=== PATIENT | female | born 2000 | race African-American/Black ===

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

== ENCOUNTER 2019-01-28 11:42 | Emergency (ER) | payer OTHER ==
[~2019-01-28] VITALS: Ht 165.1 cm; Wt 73.3 kg
[2019-01-28 11:58] VITALS: BP 127/72
--- NOTE | 2019-01-28 12:04 | PHYS DOC ---
Past History Past Medical History: No Pertinent History, Other Past Surgical History: Tonsillectomy Smoking: Non-smoker Alcohol Use: None Drug Use: None Adult General Chief Complaint Chief Complaint: URINARY RETENTION HPI HPI Patient is a 18-year-old female who presents with complaint of urinary discomfort that started yesterday. She complains of urinary frequency with a lot of burning with urination. She states that she is only passing small amount of urine at a time. She states that she has been taking Azo but that has not been helping. She denies any fever. She denies any nausea or vomiting.[] Review of Systems Review of Systems Constitutional: Denies fever or chills [] Respiratory: Denies cough or shortness of breath [] Cardiovascular: No additional information not addressed in HPI [] GI: Complains of suprapubic pain without vomiting or diarrhea [] : Complains of urinary frequency with dysuria[] Musculoskeletal: Denies back pain or joint pain [] Allergies Allergies Allergies Coded Allergies Type Severity Reaction Last Updated Verified No Known Drug Allergies 09/02/16 No Physical Exam Physical Exam Constitutional: Well developed, well nourished, no acute distress, non-toxic appearance. [] Cardiovascular:Heart rate regular rhythm, no murmur [] Lungs & Thorax: Bilateral breath sounds clear to auscultation [] Abdomen: Bowel sounds normal, soft, with suprapubic tenderness. [] Skin: Warm, dry, no erythema, no rash. [] EKG EKG [] Radiology/Procedures Radiology/Procedures [] Course & Med Decision Making Course & Med Decision Making Pertinent Labs and Imaging studies reviewed. (See chart for details) [] Dragon Disclaimer Dragon Disclaimer This electronic medical record was generated, in whole or in part, using a voice recognition dictation system. Departure Departure: Impression: Primary Impression: UTI (urinary tract infection) Disposition: 01 HOME, SELF-CARE Condition: STABLE Referrals: [facility]HAEL BLAKE DO, [facility] (PCP) Patient Instructions: Urinary Tract Infection Scripts Phenazopyridine Hcl (PYRIDIUM) 100 Mg Tablet 100 MG PO TID PRN for URINARY PAIN, #12 TAB Prov: AAMIR ROJAS Jr., DO 01/28/19 Sulfamethoxazole/Trimethoprim (BACTRIM DS TABLET) 1 Each Tablet 1 TAB PO BID for infection, #20 TAB Prov: AAMIR ROJAS Jr., DO 01/28/19 Problem Qualifiers Primary Impression: UTI (urinary tract infection) Urinary tract infection type: site unspecified Hematuria presence: without hematuria Qualified Codes: N39.0 - Urinary tract infection, site not specified AAMIR ROJAS Jr. DO Jan 28, 2019 12:04
[2019-01-28 12:29] LABS: U PREG PATIENT NEGATIVE (NEG)
[2019-01-28 12:30] LABS: CLARITY,URINE BLOODY; COLOR,URINE RED
[2019-01-28 12:31] LABS: BILIRUBIN,URINE NEG (NEG)
[2019-01-28] MEDS ORDERED: PHEN100T82 PO (12:36)
[2019-01-28] MEDS ORDERED: SULF1TAB24 PO (12:36)
[2019-01-28] MEDS ORDERED: FLUC150T PO (12:48)
== END 2019-01-28 12:43 | disposition home or self-care (01) ==
LOC: ER 11:42
DX: N39.0 Urinary tract infection, site not specified (principal)
CPT/HCPCS: 81003; 81025; 99283

== ENCOUNTER 2019-11-05 16:31 | Emergency (ER) | payer OTHER ==
[~2019-11-05] VITALS: Ht 162.6 cm; Wt 74.0 kg
[~2019-11-05 16:31] MED LIST changes: +FLUC150T PO; +PHEN100T82 PO; +SULF1TAB24 PO
[2019-11-05 16:35] VITALS: BP 140/76
--- NOTE | 2019-11-05 16:50 | PHYS DOC ---
Past History Past Medical History: No Pertinent History Past Surgical History: Tonsillectomy Smoking: Non-smoker Alcohol Use: None Drug Use: None General Adult EDM: Chief Complaint: CHEST PAIN HPI: HPI: Patient is a healthy 19-year-old female who presents with a sharp chest pain. States been going on today. She states she has been smoking marijuana and went to a "puff alliance party". She states the symptoms started after that. She has not had any fever chills or sweats. She is not really been coughing. 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 however she does not believe anyone there has been sick with COVID-19 [] Review of Systems: Review of Systems: Constitutional: Denies fever or chills Eyes: Denies change in visual acuity HENT: Denies nasal congestion or sore throat Respiratory: Denies cough or shortness of breath Cardiovascular: Per HPI GI: Denies abdominal pain, nausea, vomiting, bloody stools or diarrhea : Denies dysuria Musculoskeletal: Denies back pain or joint pain Integument: Denies rash Neurologic: Denies headache, focal weakness or sensory changes Endocrine: Denies polyuria or polydipsia Lymphatic: Denies swollen glands Psychiatric: Reports anxiety Heart Score: Risk Factors: Risk Factors: DM, Current or recent (<one month) smoker, HTN, HLP, family history of CAD, obesity. Risk Scores: Score 0 - 3: 2.5% MACE over next 6 weeks - Discharge Home Score 4 - 6: 20.3% MACE over next 6 weeks - Admit for Clinical Observation Score 7 - 10: 72.7% MACE over next 6 weeks - Early Invasive Strategies Allergies: Allergies: Allergies Coded Allergies Type Severity Reaction Last Updated Verified No Known Drug Allergies 09/02/16 No Physical Exam: PE: Constitutional: Well developed, well nourished, no acute distress, non-toxic appearance. [] HENT: Normocephalic, atraumatic, bilateral external ears normal, oropharynx moist, no oral exudates, nose normal. [] Eyes: PERRLA, EOMI, conjunctiva normal, no discharge. [] Neck: Normal range of motion, no tenderness, supple, no stridor. [] Cardiovascular:Heart rate regular rhythm, no murmur [] Lungs & Thorax: Bilateral breath sounds clear to auscultation [] Abdomen: Bowel sounds normal, soft, no tenderness, no masses, no pulsatile masses. [] Skin: Warm, dry, no erythema, no rash. [] Back: No tenderness, no CVA tenderness. [] Extremities: No tenderness, no cyanosis, no clubbing, ROM intact, no edema. [] Neurologic: Alert and oriented X 3, normal motor function, normal sensory function, no focal deficits noted. [] Psychologic: Very anxious. [] Current Patient Data: Vital Signs: Vital Signs Date Time Temp Pulse Resp B/P (MAP) Pulse Ox O2 Delivery O2 Flow Rate FiO2 11/05/19 16:35 98.0 88 16 140/76 (97) 100 Room Air EKG: EKG: [] Radiology/Procedures: Radiology/Procedures: [] Course & Med Decision Making: Course & Med Decision Making Pertinent Labs and Imaging studies reviewed. (See chart for details) [] Dragon Disclaimer: Dragon Disclaimer: This electronic medical record was generated, in whole or in part, using a voice recognition dictation system. Departure Departure: Impression: Primary Impression: Non-cardiac chest pain Disposition: HOME, SELF-CARE Condition: STABLE Referrals: MICHAEL BLAKE DO, [facility] (PCP) Patient Instructions: Chest Wall Pain, Pleurisy Additional Instructions: Take Tylenol or Motrin as needed for your discomfort. Return to the emergency department with any new or concerning symptoms CLARISSA REDDY DO Nov 05, 2019 16:50
== END 2019-11-05 16:54 | disposition home or self-care (01) ==
LOC: ER 16:31
DX: R07.89 Other chest pain (principal); F41.9 Anxiety disorder, unspecified; Z90.89 Acquired absence of other organs
CPT/HCPCS: 99282

== ENCOUNTER 2020-02-18 14:15 | Emergency (ER) | payer OTHER ==
[~2020-02-18] VITALS: Ht 162.6 cm; Wt 68.2 kg
--- NOTE | 2020-02-18 15:03 | PHYS DOC ---
Past History Past Medical History: No Pertinent History Past Surgical History: Tonsillectomy Smoking: Non-smoker Alcohol Use: None Drug Use: None General Adult EDM: Chief Complaint: VAGINAL PROBLEM HPI: HPI: 19-year-old female presents with 2-day history of vaginal itching. The patient was diagnosed with bacterial vaginosis a couple weeks ago. She took 7 days of metronidazole. She is concerned that the bacterial vaginosis may have come back where she might have a yeast infection. Patient also like to be tested for STDs. She is sexually active. She denies fever or chills. She has no other complaints at this time. Review of Systems: Review of Systems: Constitutional: Denies fever or chills Eyes: Denies change in visual acuity HENT: Denies nasal congestion or sore throat Respiratory: Denies cough or shortness of breath Cardiovascular: Denies chest pain or edema GI: Denies abdominal pain, nausea, vomiting, bloody stools or diarrhea : Vaginal itching Musculoskeletal: Denies back pain or joint pain Integument: Denies rash Neurologic: Denies headache, focal weakness or sensory changes Endocrine: Denies polyuria or polydipsia Lymphatic: Denies swollen glands Psychiatric: Denies depression or anxiety Heart Score: Risk Factors: Risk Factors: DM, Current or recent (<one month) smoker, HTN, HLP, family history of CAD, obesity. Risk Scores: Score 0 - 3: 2.5% MACE over next 6 weeks - Discharge Home Score 4 - 6: 20.3% MACE over next 6 weeks - Admit for Clinical Observation Score 7 - 10: 72.7% MACE over next 6 weeks - Early Invasive Strategies Allergies: Allergies: Allergies Coded Allergies Type Severity Reaction Last Updated Verified No Known Drug Allergies 09/02/16 No Physical Exam: PE: Constitutional: Well developed, well nourished, no acute distress, non-toxic appearance. [] HENT: Normocephalic, atraumatic, bilateral external ears normal, oropharynx moist, no oral exudates, nose normal. [] Eyes: PERRLA, EOMI, conjunctiva normal, no discharge. [] Neck: Normal range of motion, no tenderness, supple, no stridor. [] Cardiovascular: Heart rate regular rhythm, no murmur [] Lungs & Thorax: Bilateral breath sounds clear to auscultation [] Abdomen: Bowel sounds normal, soft, no tenderness, no masses, no pulsatile masses. [] Skin: Warm, dry, no erythema, no rash. [] Back: No tenderness, no CVA tenderness. [] Extremities: No tenderness, no cyanosis, no clubbing, ROM intact, no edema. [] Neurologic: Alert and oriented X 3, normal motor function, normal sensory function, no focal deficits noted. [] Psychologic: Affect normal, judgement normal, mood normal. [] EKG: EKG: [] Radiology/Procedures: Radiology/Procedures: [] Course & Med Decision Making: Course & Med Decision Making Pertinent Labs and Imaging studies reviewed. (See chart for details) The patient's labs are unremarkable. Her wet prep is positive for bacterial vaginosis. I will treat her again with Flagyl 500 mg twice daily but for 10 days. She has elected for treatment of gonorrhea and chlamydia prophylactically. I have given her 2 and 50 mg Rocephin IM and a gram of azithromycin p.o. She is stable for discharge at this time. [] Dragon Disclaimer: Dragon Disclaimer: This electronic medical record was generated, in whole or in part, using a voice recognition dictation system. Departure Departure: Impression: Primary Impression: Bacterial vaginosis Disposition: HOME/RESIDENCE PRIOR TO ADM Condition: STABLE Referrals: MICHAEL BLAKE DO, [facility] (PCP) Patient Instructions: Bacterial Vaginosis, [id number] Scripts Metronidazole (METRONIDAZOLE) 500 Mg Tablet 1 TAB PO BID for bacterial vaginosis for 10 Days, #20 TAB 0 Refills Prov: LM MACHADO DO 02/18/20 Justification of Admission: Justification of Admission: Justification of Admission Dx: N/A LM MACHADO DO Feb 18, 2020 15:03
[2020-02-18 15:20] LABS: BASO # 0.1 x10^3/uL (0.0-0.2); BASO % 1 % (0-3); EOS # 0.1 x10^3/uL (0.0-0.7); EOS % 1 % (0-3); HEMATOCRIT 40.6 % (36.0-47.0); HEMOGLOBIN 13.3 g/dL (12.0-15.5); LYMPH # 1.6 x10^3/uL (1.0-4.8); LYMPH % 37 % (24-48); MEAN CORPUSCULAR HEMOGLOBIN 28 pg (25-35); MEAN CORPUSCULAR HGB CONC 33 g/dL (31-37); MEAN CORPUSCULAR VOLUME 84 fL (79-100); MONO # 0.4 x10^3/uL (0.0-1.1); MONO % 8 % (0-9); NEUT # 2.3 x10^3uL (1.8-7.7); NEUT % 52 % (31-73); PLATELET COUNT 314 x10^3/uL (140-400); RED BLOOD COUNT 4.84 x10^6/uL (3.50-5.40); RED CELL DISTRIBUTION WIDTH 13.4 % (11.5-14.5); WHITE BLOOD COUNT 4.4 x10^3/uL (4.0-11.0)
[2020-02-18 15:23] LABS: BARBITURATES NEG (NEG); BENZODIAZEPINES NEG (NEG); CANNABINOIDS POS (NEG); COCAINE NEG (NEG); METHADONE NEG (NEG); OPIATES NEG (NEG); PHENCYCLIDINE NEG (NEG)
[2020-02-18 15:25] LABS: AMPHETAMINE/METHAMPHETAMINE NEG (NEG)
[2020-02-18 15:30] LABS: CALCIUM 9.2 mg/dL (8.5-10.1); CREATININE 0.9 mg/dL (0.6-1.0); GFR 96.6; POTASSIUM 3.8 mmol/L (3.5-5.1)
[2020-02-18 15:31] LABS: BILIRUBIN,URINE NEG (NEG); CLARITY,URINE HAZY; COLOR,URINE YELLOW; GLUCOSE,URINE NEG (NEG)
[2020-02-18 15:32] LABS: BACTERIA,URINE 0 /HPF (0-FEW); NITRITE,URINE NEG (NEG); RBC,URINE OCC /HPF (0-2); SQUAMOUS EPITHELIAL CELL,UR MANY /LPF; WBC,URINE OCC /HPF (0-4)
[2020-02-18 15:37] LABS: ALBUMIN/GLOBULIN RATIO 1.1 (1.0-1.7); TOTAL BILIRUBIN 0.8 mg/dL (0.2-1.0); TOTAL PROTEIN 7.5 g/dL (6.4-8.2)
[2020-02-18] MEDS ORDERED: cefTRIAXone IM 250 MG VIAL IM ONE (16:00)
[2020-02-18] MEDS ORDERED: AZITHROMYCIN 250 MG TABLET. PO ONE (16:00)
[2020-02-18] MEDS ORDERED: METR-34 PO (16:28)
[2020-02-18 16:38] VITALS: BP 122/67
[2020-02-21 23:06] LABS: CHLAMYDIA PROBE Negative (Negative)
== END 2020-02-18 16:44 | disposition home or self-care (01) ==
LOC: ER 14:15
DX: N76.0 Acute vaginitis (principal); B96.89 Other specified bacterial agents as the cause of diseases classified elsewhere
CPT/HCPCS: 36415; 80053; 80307; 81001; 81025; 85025; 87491; 87591; 96372; 99283; J0456; J0696; Q0111

== ENCOUNTER 2021-05-07 16:45 | Emergency (ER) | payer OTHER ==
[~2021-05-07] VITALS: Ht 162.6 cm; Wt 72.7 kg
[~2021-05-07 16:45] MED LIST changes: +METR-34 PO
[2021-05-07 17:53] VITALS: BP 129/73
--- NOTE | 2021-05-07 18:55 | PHYS DOC ---
Past History Past Medical History: No Pertinent History Past Surgical History: Tonsillectomy Smoking: Non-smoker Additional Smoking Information: vape Alcohol Use: None Drug Use: None General Adult EDM: Chief Complaint: SORE THROAT HPI: HPI: 20-year-old female presents with sore throat for the last 2 days. It is intermittently sore and mostly only with swallowing. She is able to eat and drink normally without difficulty. She has had no shortness of breath or significant cough. She had COVID-19 a couple months ago and has recovered. She has since been fully vaccinated. Her child had RSV and Covid 2 weeks ago. The patient just wants to make sure she does not have Covid again or strep throat. She denies fever or chills at home. Review of Systems: Review of Systems: Constitutional: Denies fever or chills Eyes: Denies change in visual acuity HENT: sore throat Respiratory: Denies cough or shortness of breath Cardiovascular: Denies chest pain or edema GI: Denies abdominal pain, nausea, vomiting, bloody stools or diarrhea : Denies dysuria Musculoskeletal: Denies back pain or joint pain Integument: Denies rash Neurologic: Denies headache, focal weakness or sensory changes Endocrine: Denies polyuria or polydipsia Lymphatic: Denies swollen glands Psychiatric: Denies depression or anxiety Allergies: Allergies: Allergies Coded Allergies Type Severity Reaction Last Updated Verified No Known Drug Allergies 09/02/16 No Physical Exam: PE: Constitutional: Well developed, well nourished, no acute distress, non-toxic appearance. [] HENT: Normocephalic, atraumatic, bilateral external ears normal, oropharynx moist without tonsillar exudates, mild postnasal drip, nose normal. [] Eyes: PERRLA, EOMI, conjunctiva normal, no discharge. [] Neck: Normal range of motion, no tenderness, supple, no stridor. [] Cardiovascular: Heart rate regular rhythm, no murmur [] Lungs & Thorax: Bilateral breath sounds clear to auscultation [] Abdomen: Bowel sounds normal, soft, no tenderness, no masses, no pulsatile masses. [] Skin: Warm, dry, no erythema, no rash. [] Back: No tenderness, no CVA tenderness. [] Extremities: No tenderness, no cyanosis, no clubbing, ROM intact, no edema. [] Neurologic: Alert and oriented X 3, normal motor function, normal sensory function, no focal deficits noted. [] Psychologic: Affect normal, judgement normal, mood normal. [] Current Patient Data: Labs: Laboratory Tests Test 05/07/21 18:07 Group A Streptococcus Rapid Negative (NEGATIVE) Vital Signs: Vital Signs Date Time Temp Pulse Resp B/P (MAP) Pulse Ox O2 Delivery O2 Flow Rate FiO2 05/07/21 17:53 98.5 78 16 129/73 (91) 100 Room Air EKG: EKG: [] Radiology/Procedures: Radiology/Procedures: [] Heart Score: C/O Chest Pain: N/A Risk Factors: Risk Factors: DM, Current or recent (<one month) smoker, HTN, HLP, family history of CAD, obesity. Risk Scores: Score 0 - 3: 2.5% MACE over next 6 weeks - Discharge Home Score 4 - 6: 20.3% MACE over next 6 weeks - Admit for Clinical Observation Score 7 - 10: 72.7% MACE over next 6 weeks - Early Invasive Strategies Course & Med Decision Making: Course & Med Decision Making Pertinent Labs and Imaging studies reviewed. (See chart for details) The patient's rapid strep is negative. I do not have high suspicion for strep. Her COVID-19 is pending but unlikely also. Believe this is most likely viral pharyngitis. Advised the patient about supportive care and [id number] treatments. She will just have to ride this out. She is stable for discharge at this time. [] Dragon Disclaimer: Dragclay Disclaimer: This electronic medical record was generated, in whole or in part, using a voice recognition dictation system. Departure Departure: Impression: Primary Impression: Acute viral pharyngitis Referrals: MICHAEL BLAKE DO, M[facility] (PCP) Patient Instructions: Viral Pharyngitis LM MACHADO DO May 07, 2021 18:55
== END 2021-05-07 19:02 | disposition home or self-care (01) ==
LOC: ER 16:45
DX: U07.1 COVID-19 (principal); J02.8 Acute pharyngitis due to other specified organisms; F17.200 Nicotine dependence, unspecified, uncomplicated
CPT/HCPCS: 87070; 87880; 99283; C9803; U0003

== ENCOUNTER 2021-06-13 16:47 | Emergency (ER) | payer OTHER ==
[~2021-06-13] VITALS: Ht 162.6 cm; Wt 68.1 kg
[2021-06-13] MEDS ORDERED: ONDANSETRON PF 4 MG/2 ML VIAL. IVP ONE (17:15)
[2021-06-13] MEDS ORDERED: IV NORMAL SALINE 1,000ML 1,000 ML IV ONE (17:15)
[2021-06-13] MEDS ORDERED: KETOROLAC 30 MG/ML VIAL. IVP ONE (17:30)
[2021-06-13] MEDS ORDERED: LIDO:MAALOX 1:1 20 ML SINGLE DOSE. PO ONE (17:45)
[2021-06-13 17:48] LABS: BASO % 0 % (0-3); EOS % 0 % (0-3); HEMATOCRIT 40.7 % (36.0-47.0); HEMOGLOBIN 13.2 g/dL (12.0-15.5); LYMPH # 0.2 x10^3/uL (1.0-4.8); LYMPH % 1 % (24-48); MEAN CORPUSCULAR HEMOGLOBIN 25 pg (25-35); MEAN CORPUSCULAR HGB CONC 32 g/dL (31-37); MEAN CORPUSCULAR VOLUME 77 fL (79-100); MONO # 0.2 x10^3/uL (0.0-1.1); MONO % 2 % (0-9); NEUT # 10.2 x10^3uL (1.8-7.7); NEUT % 96 % (31-73); PLATELET COUNT 404 x10^3/uL (140-400); RED BLOOD COUNT 5.29 x10^6/uL (3.50-5.40); RED CELL DISTRIBUTION WIDTH 15.2 % (11.5-14.5); WHITE BLOOD COUNT 10.7 x10^3/uL (4.0-11.0)
[2021-06-13 17:49] LABS: BILIRUBIN,URINE SMALL (NEG); CLARITY,URINE CLEAR; COLOR,URINE YELLOW; GLUCOSE,URINE NEG (NEG); NITRITE,URINE NEG (NEG); UROBILINOGEN,URINE 0.2 mg/dL (0.2 mg/dL)
[2021-06-13 17:50] LABS: BACTERIA,URINE 0 /HPF (0-FEW); RBC,URINE 0 /HPF (0-2); SQUAMOUS EPITHELIAL CELL,UR FEW /LPF; WBC,URINE OCC /HPF (0-4)
--- NOTE | 2021-06-13 17:56 | PHYS DOC ---
Past History Past Medical History: No Pertinent History Past Surgical History: , Tonsillectomy, Other Additional Past Surgical Histo: adnoidectomy Smoking: Non-smoker Alcohol Use: None Drug Use: None General Adult EDM: Chief Complaint: ABDOMINAL PAIN HPI: HPI: Patient is a 20 year old female who presents with abdominal pain, nausea, vomiting. Patient reports her pain began this morning. She has had 4 episodes of emesis and 5 episodes of diarrhea today. She denies blood in vomit or stool. She reports associated fever this morning. She has not attempted to take any medication. She is able to keep water only down. She has not attempted eating today. Patient had an upper respiratory infection recently. She has been taking Tessalon Perles to control her cough. Patient reports she had a in January and is unsure if she is currently . Review of Systems: Review of Systems: Constitutional: See HPI Eyes: Denies change in visual acuity HENT: Denies nasal congestion or sore throat Respiratory: Denies cough or shortness of breath Cardiovascular: Denies chest pain or edema GI: See HPI : See HPI Musculoskeletal: Denies back pain or joint pain Integument: Denies rash or other skin lesions Neurologic: Denies headache, focal weakness or sensory changes Current Medications: Current Meds: Current Medications Medications (Trade) Dose Ordered Sig/[facility] Start Time Stop Time Status Last Admin Dose Admin Ketorolac Tromethamine (Toradol 30mg Vial) 15 mg 1X ONCE 06/13/21 17:30 06/13/21 17:31 DC 06/13/21 17:35 15 MG Multi-Ingredient Mouthwash/Gargle (Gi Cocktail) 20 ml 1X ONCE 06/13/21 17:45 06/13/21 17:46 DC 06/13/21 17:40 20 ML Ondansetron HCl (Zofran) 4 mg 1X ONCE 06/13/21 17:15 06/13/21 17:19 DC 06/13/21 17:37 4 MG Sodium Chloride 1,000 ml @ 1,000 mls/hr 1X ONCE 06/13/21 17:15 06/13/21 18:14 06/13/21 17:34 1,000 MLS/HR Allergies: Allergies: Allergies Coded Allergies Type Severity Reaction Last Updated Verified No Known Drug Allergies 06/13/21 No Physical Exam: PE: Constitutional: Well developed, well nourished, no acute distress, non-toxic appearance. Cardiovascular: Heart rate regular rhythm, no murmur. Lungs & Thorax: Bilateral breath sounds clear to auscultation. Abdomen: Bowel sounds normal, soft, epigastric and right upper quadrant tenderness appreciated, positive Wakefield sign, no masses, no pulsatile masses. Skin: Warm, dry, no erythema, no rash. Back: No tenderness, no CVA tenderness. Extremities: No tenderness, no cyanosis, no clubbing, ROM intact, no edema. Neurologic: Alert and oriented x4, no focal deficits noted. Current Patient Data: Labs: Laboratory Tests Test 06/13/21 17:15 06/13/21 17:23 06/13/21 17:25 06/13/21 17:30 Urine Collection Type Unknown Urine Color Yellow Urine Clarity Clear Urine pH 5.5 Urine Specific [place] 1.025 Urine Protein Neg (NEG-TRACE) Urine Glucose (UA) Neg mg/dL (NEG) Urine Ketones (Stick) 15 mg/dL (NEG) Urine Blood Neg (NEG) Urine Nitrite Neg (NEG) Urine Bilirubin Small (NEG) Urine Urobilinogen Dipstick 0.2 mg/dL (0.2 mg/dL) Urine Leukocyte Esterase Neg (NEG) Urine RBC 0 /HPF (0-2) Urine WBC Occ /HPF (0-4) Urine Squamous Epithelial Cells Few /LPF Urine Bacteria 0 /HPF (0-FEW) Bedside Urine HCG, Qualitative hcg negative (Negative) White Blood Count 10.7 x10^3/uL (4.0-11.0) Red Blood Count 5.29 x10^6/uL (3.50-5.40) Hemoglobin 13.2 g/dL (12.0-15.5) Hematocrit 40.7 % (36.0-47.0) Mean Corpuscular Volume 77 fL (79-100) Mean Corpuscular Hemoglobin 25 pg (25-35) Mean Corpuscular Hemoglobin Concent 32 g/dL (31-37) Red Cell Distribution Width 15.2 % (11.5-14.5) Platelet Count 404 x10^3/uL (140-400) Neutrophils (%) (Auto) 96 % (31-73) Lymphocytes (%) (Auto) 1 % (24-48) Monocytes (%) (Auto) 2 % (0-9) Eosinophils (%) (Auto) 0 % (0-3) Basophils (%) (Auto) 0 % (0-3) Neutrophils # (Auto) 10.2 x10^3uL (1.8-7.7) Lymphocytes # (Auto) 0.2 x10^3/uL (1.0-4.8) Monocytes # (Auto) 0.2 x10^3/uL (0.0-1.1) Eosinophils # (Auto) 0.0 x10^3/uL (0.0-0.7) Basophils # (Auto) 0.0 x10^3/uL (0.0-0.2) Sodium Level 139 mmol/L (136-145) Potassium Level 3.7 mmol/L (3.5-5.1) Chloride Level 104 mmol/L (98-107) Carbon Dioxide Level 22 mmol/L (21-32) Anion Gap 13 (6-14) Blood Urea Nitrogen 9 mg/dL (7-20) Creatinine 0.9 mg/dL (0.6-1.0) Estimated GFR (Cockcroft-Gault) 95.6 BUN/Creatinine Ratio 10 (6-20) Glucose Level 91 mg/dL (70-99) Calcium Level 8.9 mg/dL (8.5-10.1) Magnesium Level 2.1 mg/dL (1.8-2.4) Total Bilirubin 2.1 mg/dL (0.2-1.0) Aspartate Amino Transf (AST/SGOT) 15 U/L (15-37) Alanine Aminotransferase (ALT/SGPT) 20 U/L (14-59) Alkaline Phosphatase 67 U/L (46-116) Total Protein 7.9 g/dL (6.4-8.2) Albumin 4.1 g/dL (3.4-5.0) Albumin/Globulin Ratio 1.1 (1.0-1.7) Lipase 50 U/L (73-393) Influenza Type A (Rapid) Negative (NEGATIVE) Influenza Type B (Rapid) Negative (NEGATIVE) Vital Signs: VS Date Time Temp Pulse Resp B/P (MAP) Pulse Ox O2 Delivery O2 Flow Rate FiO2 06/13/21 17:43 83 18 137/64 (88) 100 Room Air 06/13/21 16:56 98.4 84 18 143/68 93 100 Room Air Radiology/Procedures: Radiology/Procedures: PROCEDURE: CT ABD PELV W/ IV CONTRST ONLY Exam Date: 06/13/2021 6:[address] ABDOMEN+PELVIS W Indication: Reason: elevated bili, abd pain - 75mls omni 300 / Spl. Instructions: / History: . TECHNIQUE: CT examination of the abdomen and pelvis was performed following the administration of nonionic intravenous contrast. One or more of the following dose reduction techniques were utilized: *Automated exposure control (AEC) *Adjustment of mA and/or kV according to patient size *Use of iterative reconstruction technique *CT scan done according to ALARA, or ALARA/IMAGE GENTLY FINDINGS: The visualized lung bases are clear. The liver, gallbladder, spleen, pancreas, adrenal glands and kidneys are normal. Urinary bladder is normal in appearance. There is no bowel obstruction or inflammation. No evidence for acute appendicitis. No significant atherosclerotic calcifications are seen. No lymphadenopathy or ascites is seen. Osseous structures are intact. IMPRESSION: No evidence of acute intra-abdominal pathology. Electronically signed by: Jose Morgan MD (06/13/2021 7:07 PM) [facility] Heart Score: C/O Chest Pain: No Course & Med Decision Making: Course & Med Decision Making Pertinent Labs and Imaging studies reviewed. (See chart for details) Patient presents with upper abdominal pain, nausea, vomiting, diarrhea and acidic taste in mouth. Work-up today will include blood work, urinalysis, Covid and flu swabs. IV fluids, Zofran, ketorolac administered. GI cocktail provided. On reevaluation, patient states GI cocktail helped with esophageal and epigastric pain. Her pain is improved, but she continues to have upper and right-sided abdominal pain. Bilirubin elevated at 2.1. CT imaging ordered to evaluate liver. CT does not reveal any acute abdominal pathology. On reevaluation, patient is asleep in exam bed. Discussed clear liquid diet and advance as tolerated with the patient. She will be sent home with prescription for Zofran ODT. She is advised to take [id number] Pepto-Bismol or Imodium for any ongoing diarrhea. Patient understands and is agreeable to discharge plan. Ruben Disclaimer: Ruben Disclaimer: This electronic medical record was generated, in whole or in part, using a voice recognition dictation system. Departure Departure: Impression: Primary Impression: Gastroenteritis Additional Impression: Elevated bilirubin Disposition: HOME / SELF CARE / HOMELESS Condition: STABLE Referrals: MICHAEL BLAKE DO, M[facility] (PCP) Patient Instructions: Diet for Diarrhea, Adult, Viral Gastroenteritis, [id number] Scripts Ondansetron (ONDANSETRON ODT) 4 Mg Tab.rapdis 1 TAB PO PRN Q6-8HRS for nausea, #20 TAB Prov: SIXTO PARRA 06/13/21 SIXTO PARRA Jun 13, 2021 17:56
[2021-06-13 18:01] LABS: CALCIUM 8.9 mg/dL (8.5-10.1); CREATININE 0.9 mg/dL (0.6-1.0); GFR 95.6; POTASSIUM 3.7 mmol/L (3.5-5.1)
[2021-06-13 18:02] LABS: INFLUENZA A PATIENT NEGATIVE (NEGATIVE); INFLUENZA B PATIENT NEGATIVE (NEGATIVE)
[2021-06-13 18:06] LABS: ALBUMIN 4.1 g/dL (3.4-5.0); ALBUMIN/GLOBULIN RATIO 1.1 (1.0-1.7); MAGNESIUM 2.1 mg/dL (1.8-2.4); TOTAL BILIRUBIN 2.1 mg/dL (0.2-1.0); TOTAL PROTEIN 7.9 g/dL (6.4-8.2)
[2021-06-13] MEDS ORDERED: IOHEXOL 300 MG/ML 75 ML VIAL. IV ONE (18:45)
--- NOTE | 2021-06-13 19:10 | RAD ---
Exam Date: 06/13/2021 6:[address] ABDOMEN+PELVIS W Indication: Reason: elevated bili, abd pain - 75mls omni 300 / Spl. Instructions: / History: . TECHNIQUE: CT examination of the abdomen and pelvis was performed following the administration of no nionic intravenous contrast. One or more of the following dose reduction techniques were utilized: *Automated exposure control (AEC) *Adjustment of mA and/or kV according to patient size *Use of iterative reconstruction technique *CT scan done according to ALARA, or ALARA/IMAGE GENTLY FINDINGS: The visualized lung bases are clear. The liver, gallbladder, spleen, pancreas, adrenal glands and kidneys are normal. Urinary bladder is normal in appearance. There is no bowel obstruction or inflammation. No evidence for acute appendicitis. No significant atherosclerotic calcifications are seen. No lymphadenopathy or ascites is seen. Osseous structures are intact. IMPRESSION: No evidence of acute intra-abdominal pathology. Electronically signed by: Jose Morgan MD (06/13/2021 7:07 PM) [facility]
[2021-06-13] MEDS ORDERED: ONDA4TAB12 PO (19:26)
[2021-06-13] MEDS ORDERED: ONDANSETRON 4MG ODT 4TABLET STARTPACK. PO ONE (19:30)
[2021-06-13 19:41] VITALS: BP 127/78
== END 2021-06-13 19:45 | disposition home or self-care (01) ==
LOC: ER 16:47
DX: K52.9 Noninfective gastroenteritis and colitis, unspecified (principal); E80.6 Other disorders of bilirubin metabolism; R19.7 Diarrhea, unspecified; Z20.822 Contact with and (suspected) exposure to COVID-19; Z98.890 Other specified postprocedural states
CPT/HCPCS: 74177; 80053; 81001; 81025; 83690; 83735; 85025; 87804; 96361; 96374; 96375; 99285; C9803; J1885; J2405; J7030; Q0162; Q9967; U0003